=== PATIENT | female | born 1960 | race Caucasian/White ===

== ENCOUNTER 2019-05-27 21:55 | Inpatient (IN) | payer BC ==
[~2019-05-27] VITALS: Ht 162.6 cm; Wt 79.6 kg
[~2019-05-27 21:55] MED LIST: ACAM333T8 PO; ATEN-169 PO; CHOL10002 PO; FAMO20TA8 PO; FLUT16SP2 BOTHNARES; GABA-534 PO; HYDR-3973 PO; HYDR-4070 PO; NALT50TA PO; QUET25TA PO; SERT25TA PO
[2019-05-27] MEDS ORDERED: mag hydrox/Alum hydrox/simeth 30ml oral suspension PO ONE (22:20)
[2019-05-27] MEDS ORDERED: famotidine 20mg tablet PO ONE (22:20)
[2019-05-27] MEDS ORDERED: LIDOcaine Viscous 15ml cup MM ONE (22:20)
[2019-05-27 22:31] LABS: BASOPHILS % (AUTO) 0.2 % (0-1); EOSINOPHILS # (AUTO) 0.3 X10'3 (0-0.9); EOSINOPHILS % (AUTO) 2.6 % (0-6); HEMATOCRIT 37.9 % (35.0-45.0); HEMOGLOBIN 12.9 g/dl (12.0-16.0); LYMPHOCYTES # (AUTO) 1.1 X10'3 (1.1-4.8); MEAN CORPUSCULAR HEMOGLOBIN 32.9 PG (27.0-31.0); MEAN CORPUSCULAR HGB CONC 34.1 g/dL (33.0-36.5); MEAN CORPUSCULAR VOLUME 96.7 FL (78-98); MEAN PLATELET VOLUME 7.5 FL (7.4-10.4); MONOCYTES # (AUTO) 1.3 X10'3 (0-0.9); MONOCYTES % (AUTO) 12.4 % (2-12); NEUTROPHILS # (AUTO) 7.5 X10'3 (1.8-7.7); NEUTROPHILS % (AUTO) 73.8 % (42-75); PLATELET COUNT 264 X10'3 (140-440); RED BLOOD COUNT 3.91 X10'6 (4.20-5.60); RED CELL DISTRIBUTION WIDTH 16.2 % (11.5-14.5); WHITE BLOOD COUNT 10.2 X10'3 (4.5-11.0)
[2019-05-27 22:42] LABS: ALANINE AMINOTRANSFERASE 94 U/L (12-78); ALBUMIN 3.8 G/DL (3.4-5.0); ALBUMIN/GLOBULIN RATIO 1.3 (1.1-1.5); ALKALINE PHOSPHATASE 76 IU/L (46-116); ANION GAP 6 (8-16); ASPARTATE AMINO TRANSFERASE 58 U/L (10-37); BILIRUBIN,TOTAL 0.3 MG/DL (0.1-1.0); BLOOD UREA NITROGEN 20 MG/DL (7-18); BUN/CREATININE RATIO 17.2 (6.6-38.0); CALCIUM 8.4 MG/DL (8.5-10.1); CHLORIDE 103 MMOL/L (99-107); CREATININE 1.16 MG/DL (0.40-0.90); GLUCOSE 139 MG/DL (70-104); POTASSIUM 4.2 MMOL/L (3.5-5.1); SODIUM 138 MMOL/L (135-145); TOTAL CARBON DIOXIDE 29.4 MMOL/L (24-32); TOTAL PROTEIN 6.7 G/DL (6.4-8.2); eGFR 48 ML/MIN
[2019-05-27] MEDS ORDERED: ondansetron/PF 4mg/2ml inj IV ONE (22:50)
[2019-05-27] MEDS ORDERED: morphine 4 MG/ML inj SYRINge IV ONE (22:50)
[2019-05-27] MEDS ORDERED: morphine 4 MG/ML inj SYRINge IM ONE (22:55)
[2019-05-27] MEDS ORDERED: ondansetron 4mg rapidly disintigrating tab PO ONE (22:55)
[2019-05-27 23:12] LABS: URINE HCG NEGATIVE (NEG)
[2019-05-27 23:24] LABS: LIPASE 8003 U/L (73-393)
[2019-05-27 23:26] LABS: CLARITY,URINE SLIGHTLY CLOUDY (Clear); COLOR,URINE YELLOW (Yellow); GLUCOSE, URINE NEGATIVE (Neg); KETONES,URINE NEGATIVE (Neg); LEUKOCYTE ESTERASE ,URINE TRACE (Neg); NITRITES, URINE POSITIVE (Neg); OCCULT BLOOD,URINE NEGATIVE (Neg); PROTEIN,URINE NEGATIVE (Neg); UROBILINOGEN,URINE 0.2 E.U/dL (0.2-1.0)
[2019-05-27 23:27] LABS: UA COLLECTION TYPE CLN CATCH MIDSTREAM
[2019-05-27] MEDS ORDERED: normal saline 1000ML IV soln IVB ONE (23:30)
[2019-05-27 23:36] LABS: BACTERIA,URINE 4+ /HPF (Neg); MUCUS STRANDS NONE SEEN /LPF (Neg); RBC,URINE NONE SEEN /HPF (0-2); SQUAMOUS EPITHELIAL CELL,UR FEW /LPF (FEW)
[2019-05-27] MEDS ORDERED: METO100T7 PO (23:55)
[2019-05-27] MEDS ORDERED: LISI10TA4 PO (23:55)
[2019-05-27] MEDS ORDERED: FAMO20TA8 PO (23:55)
[2019-05-27] MEDS ORDERED: NICO-687 TOP (23:55)
[2019-05-27] MEDS ORDERED: TRAZ-251 PO (23:55)
[2019-05-27] MEDS ORDERED: METH500T6 PO (23:55)
[2019-05-27] MEDS ORDERED: HYDR-3686 PO (23:55)
[2019-05-27] MEDS ORDERED: ondansetron/PF 4mg/2ml inj IV PRN (23:55)
[2019-05-27] MEDS ORDERED: ESCI5TAB PO (23:55)
[2019-05-27] MEDS ORDERED: GABA-532 PO (23:55)
[2019-05-27] MEDS ORDERED: LIDO1ADH TOP (23:55)
[2019-05-27] MEDS ORDERED: potassium CL 10mEq/100ml bag 100 ML IV PRN ×2 (23:55)
[2019-05-27] MEDS ORDERED: morphine 2 MG/ML inj. syringe IV PRN (23:55)
[2019-05-27] MEDS ORDERED: morphine/NS 5 mg/ml CADD 50 ML IV SCH (23:57)
[2019-05-28] MEDS ORDERED: naloxone 0.4 mg/ml inj IV PRN
[2019-05-28] MEDS ORDERED: non-formulary drug (Fluticasone Propionate (Flonase) 2 SPRAYS) BOTHNARES PRN
[2019-05-28] MEDS ORDERED: traZODone 50mg tablet PO PRN
[2019-05-28] MEDS ORDERED: CADD PCA waste documentation MC PRN
[2019-05-28] MEDS ORDERED: fluticasone nasal spray 16GM bottle NS PRN (00:05)
[2019-05-28] MEDS ORDERED: morphine 4 MG/ML inj SYRINge IV ONE (00:40)
[2019-05-28] MEDS: normal saline 1000ml 1,000 ML IV SCH ×3 (01:07→20:48)
--- NOTE | 2019-05-28 02:09 | NUR ---
ATTEMPTED TO GIVE REPORT; RN AT LUNCH AND WILL CALL BACK
[2019-05-28 02:30] VITALS: BP 167/94
[2019-05-28] MEDS: morphine/NS 5 mg/ml CADD 50 ML IV SCH ×10 (05:00→23:00)
[2019-05-28 06:00] VITALS: BP 113/65
[2019-05-28 06:04] LABS: BASOPHILS % (AUTO) 0.3 % (0-1); EOSINOPHILS # (AUTO) 0.1 X10'3 (0-0.9); EOSINOPHILS % (AUTO) 2.2 % (0-6); HEMATOCRIT 34.6 % (35.0-45.0); HEMOGLOBIN 11.9 g/dl (12.0-16.0); LYMPHOCYTES # (AUTO) 1.1 X10'3 (1.1-4.8); LYMPHOCYTES % (AUTO) 17.4 % (21-51); MEAN CORPUSCULAR HEMOGLOBIN 33.3 PG (27.0-31.0); MEAN CORPUSCULAR HGB CONC 34.3 g/dL (33.0-36.5); MEAN CORPUSCULAR VOLUME 97.2 FL (78-98); MEAN PLATELET VOLUME 8.1 FL (7.4-10.4); MONOCYTES # (AUTO) 0.8 X10'3 (0-0.9); MONOCYTES % (AUTO) 13.2 % (2-12); NEUTROPHILS # (AUTO) 4.3 X10'3 (1.8-7.7); NEUTROPHILS % (AUTO) 66.9 % (42-75); PLATELET COUNT 230 X10'3 (140-440); RED BLOOD COUNT 3.56 X10'6 (4.20-5.60); RED CELL DISTRIBUTION WIDTH 16.2 % (11.5-14.5); WHITE BLOOD COUNT 6.4 X10'3 (4.5-11.0)
[2019-05-28 06:11] LABS: ALANINE AMINOTRANSFERASE 72 U/L (12-78); ALBUMIN 3.1 G/DL (3.4-5.0); ALBUMIN/GLOBULIN RATIO 1.2 (1.1-1.5); ALKALINE PHOSPHATASE 63 IU/L (46-116); ANION GAP 4 (8-16); ASPARTATE AMINO TRANSFERASE 43 U/L (10-37); BILIRUBIN,TOTAL 0.3 MG/DL (0.1-1.0); BLOOD UREA NITROGEN 16 MG/DL (7-18); CALCIUM 7.7 MG/DL (8.5-10.1); CHLORIDE 108 MMOL/L (99-107); CREATININE 1.07 MG/DL (0.40-0.90); GLUCOSE 107 MG/DL (70-104); POTASSIUM 4.2 MMOL/L (3.5-5.1); SODIUM 140 MMOL/L (135-145); TOTAL CARBON DIOXIDE 27.6 MMOL/L (24-32); TOTAL PROTEIN 5.6 G/DL (6.4-8.2); eGFR 53 ML/MIN
--- NOTE | 2019-05-28 06:15 | NUR ---
Patient in room ORTHO 4015. I have received report from Clara Cross and had the opportunity to ask questions and assume patient care.
[2019-05-28 06:52] LABS: LIPASE 3185 U/L (73-393)
[2019-05-28] MEDS: K and/or MAG REPLACEMENT MC SCH ×2 (08:00→20:00)
[2019-05-28] MEDS: nicotine 21mg patch - 24 hr TD SCH (08:01)
[2019-05-28] MEDS: metoprolol succinate 25mg (24-HOUR) SR. Tablet PO SCH (08:02)
[2019-05-28] MEDS: heparin, porcine 5000 units/ml vial SQ SCH ×2 (08:03→20:46)
[2019-05-28] MEDS: LIDOcaine 5% patch TP SCH (08:24)
[2019-05-28 10:00] VITALS: BP 152/87
[2019-05-28] MEDS ORDERED: pneumococcal 23-VAL P-sac vacc 25 mcg/0.5ml vial IMVAC ONE (10:00)
[2019-05-28] MEDS ORDERED: FLU VACC QS2019-20 36MOS UP/PF 60 MCG/0.5 ML SYRINGE IMVAC ONE (10:00)
[2019-05-28] MEDS: lisinopril 10 MG tablet PO SCH (11:32)
[2019-05-28] MEDS ORDERED: gabapentin 400mg capsule PO SCH (13:00)
[2019-05-28] MEDS: gabapentin 300mg capsule PO SCH ×2 (14:36→20:46)
--- NOTE | 2019-05-28 17:30 | NUR ---
Called to pts room by LOCO Ko, who reported pts IV is beeping and the door of the IV pump was open and the tubing was out of the pump. Asked pt why the IV pump door was open, and she responded "I have no idea why." Checking the CADD use setting check showed that the reading at 1500 was exactly the same as the reading at this time (1730). Pt reported earlier today "I can't see the Morphine going through the tubing." Pt made the same statement x3 throughout the day. I asked Cate, Relief metal reclamation kettle tender and Susan RN, to look at the tubing to assure the patient it was correctly set, and the readings q 2hours showed the patient was receiving the MS. I informed the patient repeatedly that she would be unable to see the Morphine going through the IV tubing as it is such a small amount. Pts pain rating never went up higher than a 3 or 4 throughout my entire shift. Will continue to monitor closely and pass on to the oncoming shift.
[2019-05-28 18:00] VITALS: BP 100/68
--- NOTE | 2019-05-28 18:22 | NUR ---
Problems reprioritized. Patient report given, questions answered & plan of care reviewed with OMAIRA Beckham.
[2019-05-28 22:00] VITALS: BP 152/69
[2019-05-29] MEDS: morphine/NS 5 mg/ml CADD 50 ML IV SCH ×7 (01:00→13:00)
--- NOTE | 2019-05-29 05:00 | NUR ---
paged dr. 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
--- NOTE | 2019-05-29 05:35 | NUR ---
dr. richard called adviced to leave morphine specialty finishing utility person dose of 0.2 mg and address with md this morning.
[2019-05-29 05:45] LABS: ALANINE AMINOTRANSFERASE 65 U/L (12-78); ALBUMIN 2.8 G/DL (3.4-5.0); ALBUMIN/GLOBULIN RATIO 1.1 (1.1-1.5); ALKALINE PHOSPHATASE 64 IU/L (46-116); ANION GAP 5 (8-16); ASPARTATE AMINO TRANSFERASE 39 U/L (10-37); BILIRUBIN,TOTAL 0.4 MG/DL (0.1-1.0); BLOOD UREA NITROGEN 13 MG/DL (7-18); BUN/CREATININE RATIO 13.4 (6.6-38.0); CHLORIDE 110 MMOL/L (99-107); CREATININE 0.97 MG/DL (0.40-0.90); GLUCOSE 75 MG/DL (70-104); LIPASE 983 U/L (73-393); POTASSIUM 4.5 MMOL/L (3.5-5.1); SODIUM 142 MMOL/L (135-145); TOTAL CARBON DIOXIDE 26.7 MMOL/L (24-32); TOTAL PROTEIN 5.3 G/DL (6.4-8.2); eGFR 59 ML/MIN
[2019-05-29 06:00] VITALS: BP 165/86
[2019-05-29 06:39] LABS: BASOPHILS % (AUTO) 0.5 % (0-1); EOSINOPHILS # (AUTO) 0.2 X10'3 (0-0.9); EOSINOPHILS % (AUTO) 3.6 % (0-6); HEMATOCRIT 34.7 % (35.0-45.0); HEMOGLOBIN 11.7 g/dl (12.0-16.0); LYMPHOCYTES # (AUTO) 1.8 X10'3 (1.1-4.8); LYMPHOCYTES % (AUTO) 27.7 % (21-51); MEAN CORPUSCULAR HEMOGLOBIN 32.8 PG (27.0-31.0); MEAN CORPUSCULAR HGB CONC 33.7 g/dL (33.0-36.5); MEAN CORPUSCULAR VOLUME 97.4 FL (78-98); MONOCYTES # (AUTO) 1.2 X10'3 (0-0.9); MONOCYTES % (AUTO) 18.8 % (2-12); NEUTROPHILS # (AUTO) 3.3 X10'3 (1.8-7.7); NEUTROPHILS % (AUTO) 49.4 % (42-75); PLATELET COUNT 271 X10'3 (140-440); RED BLOOD COUNT 3.56 X10'6 (4.20-5.60); RED CELL DISTRIBUTION WIDTH 15.8 % (11.5-14.5); WHITE BLOOD COUNT 6.7 X10'3 (4.5-11.0)
[2019-05-29] MEDS ORDERED: fluticasone nasal spray 16GM bottle NS SCH (08:00)
[2019-05-29] MEDS: heparin, porcine 5000 units/ml vial SQ SCH (08:00)
[2019-05-29] MEDS: K and/or MAG REPLACEMENT MC SCH (08:00)
[2019-05-29] MEDS: normal saline 1000ml 1,000 ML IV SCH (08:22)
[2019-05-29] MEDS: metoprolol succinate 25mg (24-HOUR) SR. Tablet PO SCH (08:23)
[2019-05-29] MEDS: gabapentin 300mg capsule PO SCH ×2 (08:24→13:15)
[2019-05-29] MEDS: lisinopril 10 MG tablet PO SCH (08:24)
[2019-05-29] MEDS: LIDOcaine 5% patch TP SCH (08:25)
[2019-05-29] MEDS: nicotine 21mg patch - 24 hr TD SCH (08:25)
[2019-05-29 09:39] LABS: TOTAL CELLS COUNTED 100
[2019-05-29 09:40] LABS: PLATELET ESTIMATE NORMAL
[2019-05-29] MEDS ORDERED: LIPA1CAP18 PO (09:52)
[2019-05-29] MEDS ORDERED: PANT40TA4 PO (09:52)
[2019-05-29] MEDS ORDERED: CEFD300C3 PO (09:57)
[2019-05-29 10:00] VITALS: BP 164/82
--- NOTE | 2019-05-29 13:30 | NUR ---
Received discharge orders from Dr. Ornelas. Discontinued IV in Left AC w/CADD pump with no redness/swelling at IV insertion site. Applied a bandaid to site, and performed waste of CADD pump Morphine with Tripp Esposito RN and documented on MAY. Prescriptions called to [facility] on [address] per pts request. Pt escorted to private vehicle via w/c with driving her to home.
== END 2019-05-29 13:40 | disposition home or self-care (01) | DRG 439 ==
LOC: ER 21:57 → ED HOLD 23:55 → ORTHO 4S 05-28 02:31
PROVIDERS: ADMIT Internal Medicine; ATTEND Internal Medicine
DX: K85.20 Alcohol induced acute pancreatitis without necrosis or infection (principal); N39.0 Urinary tract infection, site not specified; B96.20 Unspecified Escherichia coli [E. coli] as the cause of diseases classified elsewhere; F17.210 Nicotine dependence, cigarettes, uncomplicated; K80.20 Calculus of gallbladder without cholecystitis without obstruction; Z83.3 Family history of diabetes mellitus
CPT/HCPCS: 36415; 74176; 80053; 81001; 81025; 83690; 85025; 87077; 87081; 87088; 87186; 96372; 99285; G0378; J1644; J2270; J7030; Q2037

== ENCOUNTER 2022-03-20 12:25 | Emergency (ER) | payer BC ==
[~2022-03-20] VITALS: Ht 162.6 cm; Wt 72.0 kg
[~2022-03-20 12:25] MED LIST changes: -ACAM333T8 PO; -ATEN-169 PO; +ESCI5TAB PO; -FAMO20TA8 PO; +GABA-532 PO; -GABA-534 PO; +HYDR-3686 PO; -HYDR-3973 PO; -HYDR-4070 PO; +LIDO1ADH TOP; +LIPA1CAP18 PO; +LISI10TA27 PO; +METH-797 PO; +METO100T7 PO; -NALT50TA PO; +NICO-687 TOP; +PANT40TA54 PO; -QUET25TA PO; -SERT25TA PO; +TRAZ-251 PO
[2022-03-20] MEDS ORDERED: ondansetron/PF 4mg/2ml inj IV ONE (13:15)
[2022-03-20] MEDS ORDERED: normal saline 1000ml 1,000 ML IV ONE ×2 (13:15→14:00)
[2022-03-20 13:16] LABS: CLARITY,URINE CLOUDY (Clear); COLOR,URINE YELLOW (Yellow); GLUCOSE, URINE NEGATIVE (Neg); KETONES,URINE TRACE mg/dl (Neg); LEUKOCYTE ESTERASE ,URINE MODERATE (Neg); NITRITES, URINE POSITIVE (Neg); OCCULT BLOOD,URINE MODERATE (Neg); PROTEIN,URINE 100 mg/dl (Neg); UROBILINOGEN,URINE 0.2 E.U/dL (0.2-1.0)
[2022-03-20 13:22] LABS: UA COLLECTION TYPE NON-SPECIFIED; URINE AMPHETAMINE SCREEN NEGATIVE (Neg); URINE BARBITUATE SCREEN NEGATIVE (Neg); URINE BENZODIAZEPINES SCREEN NEGATIVE (Neg); URINE CANNABINOID SCREEN NEGATIVE (Neg); URINE COCAINE SCREEN NEGATIVE (Neg); URINE METHADONE SCREEN NEGATIVE (Neg); URINE OPIATE SCREEN NEGATIVE (Neg); URINE PHENCYCLIDINE SCREEN NEGATIVE (Neg)
[2022-03-20 13:24] LABS: BACTERIA,URINE 4+ /HPF (Neg); COARSE GRANULAR CAST 0-3 /LPF (NEGATIVE); MUCUS STRANDS NONE SEEN /LPF (Neg); SQUAMOUS EPITHELIAL CELL,UR MODERATE /LPF (FEW)
[2022-03-20 13:27] LABS: BASOPHILS % (AUTO) 0.3 % (0-1); EOSINOPHILS % (AUTO) 0.2 % (0-6); HEMATOCRIT 43.4 % (35.0-45.0); HEMOGLOBIN 14.5 g/dl (12.0-16.0); LYMPHOCYTES # (AUTO) 1.5 X10'3 (1.1-4.8); LYMPHOCYTES % (AUTO) 18.9 % (21-51); MEAN CORPUSCULAR HEMOGLOBIN 31.9 PG (27.0-31.0); MEAN CORPUSCULAR HGB CONC 33.4 g/dL (33.0-36.5); MEAN CORPUSCULAR VOLUME 95.3 FL (78-98); MEAN PLATELET VOLUME 7.1 FL (7.4-10.4); MONOCYTES # (AUTO) 0.5 X10'3 (0-0.9); MONOCYTES % (AUTO) 6.6 % (2-12); NEUTROPHILS # (AUTO) 5.9 X10'3 (1.8-7.7); PLATELET COUNT 320 X10'3 (140-440); RED BLOOD COUNT 4.55 X10'6 (4.20-5.60); RED CELL DISTRIBUTION WIDTH 14.4 % (11.5-14.5)
[2022-03-20 13:43] LABS: ALANINE AMINOTRANSFERASE 126 U/L (12-78); ALBUMIN 4.3 G/DL (3.4-5.0); ALBUMIN/GLOBULIN RATIO 1.3 (1.1-1.5); ALKALINE PHOSPHATASE 106 IU/L (46-116); ANION GAP 14 (8-16); ASPARTATE AMINO TRANSFERASE 154 U/L (10-37); BILIRUBIN,TOTAL 1.1 MG/DL (0.1-1.0); BLOOD UREA NITROGEN 21 MG/DL (7-18); BUN/CREATININE RATIO 20.2 (6.6-38.0); CALCIUM 8.6 MG/DL (8.5-10.1); CHLORIDE 96 MMOL/L (99-107); CREATININE 1.04 MG/DL (0.40-0.90); GLUCOSE 118 MG/DL (70-104); PHOSPHORUS 3.6 MG/DL (2.3-4.5); POTASSIUM 3.6 MMOL/L (3.5-5.1); SODIUM 139 MMOL/L (135-145); TOTAL CARBON DIOXIDE 29.4 MMOL/L (24-32); TOTAL PROTEIN 7.6 G/DL (6.4-8.2); eGFR 54 ML/MIN
[2022-03-20 13:50] LABS: ETHANOL 0.372 GM/DL (0.0-0.010)
[2022-03-20] MEDS ORDERED: thiamine 100mg/ml 2ml inj. IV STA (13:59)
[2022-03-20] MEDS ORDERED: folic acid 1mg/0.2ml inj IV STA (13:59)
[2022-03-20] MEDS ORDERED: LORazepam 1 MG tablet PO ONE (14:30)
[2022-03-20] MEDS ORDERED: cephalexin 250mg capsule PO ONE (14:30)
[2022-03-20] MEDS ORDERED: CEPH-585 PO (14:31)
[2022-03-20] MEDS ORDERED: ATI1T PO (14:31)
[2022-03-20] MEDS ORDERED: ONDA4TAB12 PO (14:33)
[2022-03-20] MEDS ORDERED: THIA50TA10 PO (14:33)
[2022-03-20] MEDS ORDERED: MULT-1085 PO (14:33)
[2022-03-20] MEDS ORDERED: multivitamins, therapeutics tablet PO SCH (14:35)
[2022-03-20 15:34] VITALS: BP 188/101
== END 2022-03-20 15:37 | disposition home or self-care (01) ==
LOC: ER 12:26
DX: F10.129 Alcohol abuse with intoxication, unspecified (principal); Y90.9 Presence of alcohol in blood, level not specified; Z98.890 Other specified postprocedural states; Z79.899 Other long term (current) drug therapy; Z79.1 Long term (current) use of non-steroidal anti-inflammatories (NSAID); Z79.2 Long term (current) use of antibiotics
CPT/HCPCS: 36415; 80053; 80305; 80320; 81001; 82948; 83735; 84100; 84484; 85025; 96361; 96374; 96375; 99285; J2405; J3411; J3490; J7030

== ENCOUNTER 2022-03-23 01:57 | Emergency (ER) | payer BC ==
[~2022-03-23] VITALS: Ht 165.1 cm; Wt 90.0 kg
[~2022-03-23 01:57] MED LIST changes: +ATI1T PO; +CEPH-585 PO; +MULT-1085 PO; +ONDA4TAB12 PO; +THIA50TA10 PO
[2022-03-23 02:01] VITALS: BP 153/95
== END 2022-03-23 04:11 | disposition left against medical advice (07) ==
LOC: ER 01:58
DX: F10.239 Alcohol dependence with withdrawal, unspecified (principal); Z53.21 Procedure and treatment not carried out due to patient leaving prior to being seen by health care provider

== ENCOUNTER 2022-09-29 06:56 | Inpatient (IN) | payer BC ==
[~2022-09-29] VITALS: Ht 162.6 cm; Wt 76.4 kg
[~2022-09-29 06:56] MED LIST changes: -CEPH-585 PO
[2022-09-29] MEDS ORDERED: thiamine 100mg/ml 2ml inj. IV ONE (07:35)
[2022-09-29] MEDS ORDERED: normal saline 1000ML IV soln IVB ONE (07:35)
[2022-09-29 07:50] LABS: BASOPHILS # (AUTO) 0.1 X10'3 (0-0.2); BASOPHILS % (AUTO) 0.8 % (0-1); EOSINOPHILS # (AUTO) 0.1 X10'3 (0-0.9); HEMATOCRIT 41.7 % (35.0-45.0); HEMOGLOBIN 13.8 g/dl (12.0-16.0); LYMPHOCYTES # (AUTO) 1.9 X10'3 (1.1-4.8); LYMPHOCYTES % (AUTO) 27.5 % (21-51); MEAN CORPUSCULAR HEMOGLOBIN 31.2 PG (27.0-31.0); MEAN CORPUSCULAR VOLUME 94.6 FL (78-98); MEAN PLATELET VOLUME 6.3 FL (7.4-10.4); MONOCYTES # (AUTO) 0.6 X10'3 (0-0.9); MONOCYTES % (AUTO) 8.5 % (2-12); NEUTROPHILS # (AUTO) 4.3 X10'3 (1.8-7.7); NEUTROPHILS % (AUTO) 62.2 % (42-75); PLATELET COUNT 380 X10'3 (140-440); RED BLOOD COUNT 4.41 X10'6 (4.20-5.60); RED CELL DISTRIBUTION WIDTH 15.3 % (11.5-14.5); WHITE BLOOD COUNT 6.9 X10'3 (4.5-11.0)
[2022-09-29 07:53] LABS: CLARITY,URINE CLOUDY (Clear); COLOR,URINE STRAW (Yellow); GLUCOSE, URINE NEGATIVE (Neg); KETONES,URINE NEGATIVE (Neg); LEUKOCYTE ESTERASE ,URINE SMALL (Neg); NITRITES, URINE NEGATIVE (Neg); OCCULT BLOOD,URINE NEGATIVE (Neg); PROTEIN,URINE NEGATIVE (Neg); UROBILINOGEN,URINE 0.2 E.U/dL (0.2-1.0)
[2022-09-29] MEDS ORDERED: HYDROcodone/acetaminophen 10/325mg tab PO ONE (07:55)
[2022-09-29] MEDS ORDERED: ondansetron 4mg rapidly disintigrating tab PO ONE (07:55)
[2022-09-29 07:57] LABS: UA COLLECTION TYPE CLN CATCH MIDSTREAM
[2022-09-29 08:03] LABS: MUCUS STRANDS NONE SEEN /LPF (Neg); SQUAMOUS EPITHELIAL CELL,UR MODERATE /LPF (FEW)
[2022-09-29 08:04] LABS: BACTERIA,URINE 4+ /HPF (Neg); TRANSITIONAL EPI CELLS,URINE FEW /HPF
[2022-09-29 08:06] LABS: RBC,URINE 0-2 /HPF (0-2); WBC,URINE 0-4 /HPF (0-4)
[2022-09-29 08:07] LABS: ALANINE AMINOTRANSFERASE 31 U/L (12-78); ALBUMIN 3.4 G/DL (3.4-5.0); ALBUMIN/GLOBULIN RATIO 1.1 (1.1-1.5); ALKALINE PHOSPHATASE 63 IU/L (46-116); ANION GAP 8 (8-16); ASPARTATE AMINO TRANSFERASE 28 U/L (10-37); BILIRUBIN,TOTAL 0.2 MG/DL (0.1-1.0); BLOOD UREA NITROGEN 16 MG/DL (7-18); CALCIUM 8.8 MG/DL (8.5-10.1); CHLORIDE 102 MMOL/L (99-107); CREATININE 3.18 MG/DL (0.40-0.90); GLUCOSE 134 MG/DL (70-104); POTASSIUM 3.6 MMOL/L (3.5-5.1); SODIUM 138 MMOL/L (135-145); TOTAL CARBON DIOXIDE 27.9 MMOL/L (24-32); TOTAL PROTEIN 6.5 G/DL (6.4-8.2); eGFR 15 ML/MIN
[2022-09-29 08:11] LABS: ETHANOL < 0.010 GM/DL (0.0-0.010); LIPASE 200 U/L (73-393)
--- NOTE | 2022-09-29 09:00 | NUR ---
Called Poison Control per MD. Pts labs indicated kindey failure per MD. Spoke to June. Per Poison Control in 4 hr draw another chemisty pannel, ABG 8 hrs after the first one is drawn, serum osmolality. MD/Charge nurse Familia have been notified.
--- NOTE | 2022-09-29 09:19 | NUR ---
Bhavani at Poison Control states is appears the Pt has ingested rubbing alcohol/acetone.
[2022-09-29 09:36] LABS: ABG BASE EXCESS 1.6 mmol/L (-2.0-2.0); ABG HCO3 21.6 mmol/L (22.0-26.0); ABG PCO2 (T) 22.8 mmHg (32.0-45.0); ABG PO2 (T) 105.9 mmHg (75.0-100.0); ALLEN'S TEST POSITIVE; FCOHb 0.4 % (0.0-3.9); FMetHb 0.1 % (0.0-1.5); FO2Hb 97.5 % (94-97); TOTAL HEMOGLOBIN 13.4 G/dl (12.0-16.0)
[2022-09-29] MEDS ORDERED: acetaminophen 325mg tablet PO PRN ×2 (09:55)
[2022-09-29] MEDS ORDERED: potassium Cl 40MEQ/1/2NS 520ml 520 ML IV PRN (09:55)
[2022-09-29] MEDS ORDERED: haloperidol lactate 5mg/ml inj IM PRN (09:55)
[2022-09-29] MEDS ORDERED: magnesium 4gm in 100ml NS 100 ML IV PRN (09:55)
[2022-09-29] MEDS ORDERED: magnesium 2GM in 50ml NS 50 ML IV PRN (09:55)
[2022-09-29] MEDS ORDERED: magnesium Cl slow-release 64mg tablet PO PRN (09:55)
[2022-09-29] MEDS ORDERED: ondansetron/PF 4mg/2ml inj IV PRN (09:55)
[2022-09-29] MEDS ORDERED: potassium Cl 20 mEq SR tablet PO PRN ×2 (09:55)
[2022-09-29] MEDS ORDERED: LORazepam 2 mg/ml vial IV ONE (10:05)
[2022-09-29 10:32] LABS: OSMOLALITY 338 MOSM/K (280-300)
[2022-09-29] MEDS: pantoprazole 40mg Tablet.DR PO SCH (10:48)
[2022-09-29] MEDS: nicotine 14mg patch - 24hr TD SCH (10:49)
[2022-09-29] MEDS: normal saline 1000ml 1,000 ML IV SCH ×2 (10:54→20:44)
[2022-09-29] MEDS: folic acid 1mg/0.2ml inj IV SCH (10:56)
[2022-09-29 12:00] VITALS: BP 146/81; PULSE 82; RESP 21; TEMP 97.8; O2SAT 92
[2022-09-29 12:21] VITALS: RESP 17; O2SAT 93
--- NOTE | 2022-09-29 12:34 | NUR ---
Patient in room PCU 3012. I have received report from Leena CASTANO and had the opportunity to ask questions and assume patient care. Pt brought from ER, pt in bed and transition of care taken.
--- NOTE | 2022-09-29 12:47 | NUR ---
As per nursing note from call with poison control all labs have been entered and will be drawn at requested time.
--- NOTE | 2022-09-29 13:24 | NUR ---
Received order for consult. Met with patient in regards to alcohol use and to see if patient was interested in resources for treatment options. Patient is interested in outpatient resources. I discussed with patient about the importance of getting a sponsor. I talked to her about Naltrexone to help with cravings. Patient was on Naltrexone in the past and it worked. Her primary doctor will give her the medicine. I gave her a list of outpatient resources and my card to call me if needed.
[2022-09-29] MEDS: thiamine 100mg/ml 2ml inj. IV SCH ×2 (14:13→21:42)
[2022-09-29 15:00] VITALS: BP 128/76; PULSE 98; RESP 16; TEMP 97.3; O2SAT 92
[2022-09-29 15:42] LABS: ALANINE AMINOTRANSFERASE 29 U/L (12-78); ALBUMIN/GLOBULIN RATIO 1.1 (1.1-1.5); ALKALINE PHOSPHATASE 54 IU/L (46-116); ANION GAP 10 (8-16); ASPARTATE AMINO TRANSFERASE 22 U/L (10-37); BILIRUBIN,TOTAL 0.2 MG/DL (0.1-1.0); BLOOD UREA NITROGEN 12 MG/DL (7-18); BUN/CREATININE RATIO 4.3 (10.0-20.0); CALCIUM 8.3 MG/DL (8.5-10.1); CHLORIDE 107 MMOL/L (99-107); CREATININE 2.81 MG/DL (0.40-0.90); GLUCOSE 120 MG/DL (70-104); POTASSIUM 3.6 MMOL/L (3.5-5.1); SODIUM 142 MMOL/L (135-145); TOTAL CARBON DIOXIDE 25.3 MMOL/L (24-32); TOTAL PROTEIN 5.8 G/DL (6.4-8.2); eGFR 17 ML/MIN
[2022-09-29] MEDS ORDERED: HYDR-3686 PO (15:47)
[2022-09-29 17:21] LABS: ABG BASE EXCESS -3.2 mmol/L (-2.0-2.0); ABG HCO3 20.3 mmol/L (22.0-26.0); ABG OXYGEN SATURATION 95.4 % (94-97); ABG PCO2 (T) 31.8 mmHg (32.0-45.0); ABG PO2 (T) 82.4 mmHg (75.0-100.0); ALLEN'S TEST POSITIVE; FCOHb 0.3 % (0.0-3.9); FLOW 0 L/min; FMetHb 0.2 % (0.0-1.5); FO2Hb 94.9 % (94-97); TOTAL HEMOGLOBIN 13.4 G/dl (12.0-16.0)
[2022-09-29 18:00] VITALS: BP 143/87; PULSE 90; RESP 18; TEMP 97.2; O2SAT 98
--- NOTE | 2022-09-29 18:38 | NUR ---
Problems reprioritized. Patient report given, questions answered & plan of care reviewed with Bakari LONG.
[2022-09-29] MEDS: heparin, porcine 5000 units/ml vial SQ SCH (19:15)
[2022-09-29] MEDS: LORazepam 1 MG tablet PO PRN (19:15)
[2022-09-29 20:00] VITALS: RESP 18; O2SAT 98
[2022-09-29 22:00] VITALS: BP 135/64; PULSE 81; RESP 13; TEMP 97.7; O2SAT 98
--- NOTE | 2022-09-29 22:00 | NUR ---
AGREE WITH ASSESSMENT DONE BY INOCENTE LONG.
[2022-09-30] VITALS (7 sets, daily range): BP systolic 123–174; BP diastolic 73–95; PULSE 72–102; RESP 14–22; TEMP 97.3–98.5; O2SAT 93–99
[2022-09-30] MEDS: normal saline 1000ml 1,000 ML IV SCH ×3 (01:55→13:49)
[2022-09-30 07:31] LABS: BASOPHILS % (AUTO) 0.4 % (0-1); EOSINOPHILS % (AUTO) 0.6 % (0-6); HEMATOCRIT 39.4 % (35.0-45.0); HEMOGLOBIN 12.9 g/dl (12.0-16.0); LYMPHOCYTES # (AUTO) 1.1 X10'3 (1.1-4.8); LYMPHOCYTES % (AUTO) 16.9 % (21-51); MEAN CORPUSCULAR HEMOGLOBIN 31.3 PG (27.0-31.0); MEAN CORPUSCULAR HGB CONC 32.6 g/dL (33.0-36.5); MEAN PLATELET VOLUME 6.6 FL (7.4-10.4); MONOCYTES # (AUTO) 0.5 X10'3 (0-0.9); NEUTROPHILS # (AUTO) 4.8 X10'3 (1.8-7.7); NEUTROPHILS % (AUTO) 74.1 % (42-75); PLATELET COUNT 353 X10'3 (140-440); RED BLOOD COUNT 4.11 X10'6 (4.20-5.60); RED CELL DISTRIBUTION WIDTH 15.2 % (11.5-14.5); WHITE BLOOD COUNT 6.5 X10'3 (4.5-11.0)
[2022-09-30] MEDS: folic acid 1mg/0.2ml inj IV SCH (07:50)
[2022-09-30] MEDS: nicotine 14mg patch - 24hr TD SCH (07:51)
[2022-09-30] MEDS: pantoprazole 40mg Tablet.DR PO SCH (07:51)
[2022-09-30] MEDS: thiamine 100mg/ml 2ml inj. IV SCH ×3 (07:51→21:09)
[2022-09-30] MEDS: heparin, porcine 5000 units/ml vial SQ SCH ×2 (07:51→21:09)
[2022-09-30] MEDS: LORazepam 2 mg/ml vial IV PRN ×3 (08:02→16:08)
[2022-09-30 08:04] LABS: ALANINE AMINOTRANSFERASE 32 U/L (12-78); ALBUMIN 3.4 G/DL (3.4-5.0); ALBUMIN/GLOBULIN RATIO 1.2 (1.1-1.5); ALKALINE PHOSPHATASE 61 IU/L (46-116); ANION GAP 12 (8-16); ASPARTATE AMINO TRANSFERASE 26 U/L (10-37); BILIRUBIN,TOTAL 0.3 MG/DL (0.1-1.0); BLOOD UREA NITROGEN 10 MG/DL (7-18); BUN/CREATININE RATIO 4.3 (10.0-20.0); CALCIUM 8.5 MG/DL (8.5-10.1); CHLORIDE 104 MMOL/L (99-107); CREATININE 2.35 MG/DL (0.40-0.90); GLUCOSE 106 MG/DL (70-104); LIPASE 122 U/L (73-393); POTASSIUM 3.6 MMOL/L (3.5-5.1); SODIUM 139 MMOL/L (135-145); TOTAL CARBON DIOXIDE 23.3 MMOL/L (24-32); TOTAL PROTEIN 6.3 G/DL (6.4-8.2); eGFR 21 ML/MIN
--- NOTE | 2022-09-30 09:43 | NUR ---
Spoke to Kathryn from Poison control she will call back with recommendations
[2022-09-30 10:09] LABS: ALANINE AMINOTRANSFERASE 32 U/L (12-78); ALBUMIN 3.2 G/DL (3.4-5.0); ALBUMIN/GLOBULIN RATIO 1.1 (1.1-1.5); ALKALINE PHOSPHATASE 53 IU/L (46-116); ANION GAP 12 (8-16); ASPARTATE AMINO TRANSFERASE 21 U/L (10-37); BILIRUBIN,TOTAL 0.3 MG/DL (0.1-1.0); BLOOD UREA NITROGEN 9 MG/DL (7-18); BUN/CREATININE RATIO 4.1 (10.0-20.0); CALCIUM 8.7 MG/DL (8.5-10.1); CHLORIDE 106 MMOL/L (99-107); CREATININE 2.21 MG/DL (0.40-0.90); GLUCOSE 104 MG/DL (70-104); POTASSIUM 3.7 MMOL/L (3.5-5.1); SODIUM 140 MMOL/L (135-145); TOTAL CARBON DIOXIDE 22.5 MMOL/L (24-32); eGFR 23 ML/MIN
[2022-09-30] MEDS ORDERED: ciprofloxacin 250mg tablet PO ONE (10:20)
[2022-09-30 15:35] LABS: ALANINE AMINOTRANSFERASE 34 U/L (12-78); ALBUMIN/GLOBULIN RATIO 1.1 (1.1-1.5); ALKALINE PHOSPHATASE 55 IU/L (46-116); ANION GAP 10 (8-16); ASPARTATE AMINO TRANSFERASE 30 U/L (10-37); BILIRUBIN,TOTAL 0.3 MG/DL (0.1-1.0); BLOOD UREA NITROGEN 9 MG/DL (7-18); BUN/CREATININE RATIO 4.4 (10.0-20.0); CALCIUM 8.6 MG/DL (8.5-10.1); CHLORIDE 106 MMOL/L (99-107); CREATININE 2.04 MG/DL (0.40-0.90); GLUCOSE 119 MG/DL (70-104); POTASSIUM 3.7 MMOL/L (3.5-5.1); SODIUM 141 MMOL/L (135-145); TOTAL CARBON DIOXIDE 24.9 MMOL/L (24-32); TOTAL PROTEIN 5.8 G/DL (6.4-8.2); eGFR 25 ML/MIN
--- NOTE | 2022-09-30 17:26 | NUR ---
Spoke to Dr Shlomo Almanzar regarding patient having elevated BP's today and noticed patient take BP medications at home. Dr will address patients home medications.
--- NOTE | 2022-09-30 18:24 | NUR ---
Problems reprioritized. Patient report given, questions answered & plan of care reviewed with Mark CASTANO patient resting with eyes closed bed alarm in IV infusing per orders.
--- NOTE | 2022-09-30 18:25 | NUR ---
Patient in room PCU 3028. I have received report from OMAIRA JAMES and had the opportunity to ask questions and assume patient care.
[2022-09-30] MEDS ORDERED: traZODone 50mg tablet PO PRN (21:00)
[2022-09-30] MEDS: sennosides/docusate sodium tablet PO SCH ×2 (21:10→21:21)
[2022-09-30 22:04] LABS: ALANINE AMINOTRANSFERASE 37 U/L (12-78); ALBUMIN 3.4 G/DL (3.4-5.0); ALBUMIN/GLOBULIN RATIO 1.1 (1.1-1.5); ALKALINE PHOSPHATASE 62 IU/L (46-116); ANION GAP 13 (8-16); ASPARTATE AMINO TRANSFERASE 29 U/L (10-37); BILIRUBIN,TOTAL 0.3 MG/DL (0.1-1.0); BLOOD UREA NITROGEN 9 MG/DL (7-18); BUN/CREATININE RATIO 4.9 (10.0-20.0); CALCIUM 9.1 MG/DL (8.5-10.1); CHLORIDE 104 MMOL/L (99-107); CREATININE 1.84 MG/DL (0.40-0.90); GLUCOSE 142 MG/DL (70-104); POTASSIUM 3.6 MMOL/L (3.5-5.1); SODIUM 140 MMOL/L (135-145); TOTAL PROTEIN 6.5 G/DL (6.4-8.2); eGFR 28 ML/MIN
[2022-10-01] VITALS (7 sets, daily range): BP systolic 134–168; BP diastolic 69–98; PULSE 64–101; RESP 16–21; TEMP 97.1–98.5; O2SAT 92–99
[2022-10-01] MEDS: normal saline 1000ml 1,000 ML IV SCH ×3 (01:37→19:34)
--- NOTE | 2022-10-01 06:07 | NUR ---
Problems reprioritized. Patient report given, questions answered & plan of care reviewed with OMAIRA Valero.
--- NOTE | 2022-10-01 06:30 | NUR ---
Patient in room PCU 3028. I have received report from Yahaira CASTANO and had the opportunity to ask questions and assume patient care.Pt awake and alert. Requesting blanket. warm blanket given. Call light in reach. Addendum: 10/01/22 at 0646 by Tricia Navarro RN Amended: Links added.
[2022-10-01 07:27] LABS: BASOPHILS % (AUTO) 0.5 % (0-1); EOSINOPHILS # (AUTO) 0.1 X10'3 (0-0.9); EOSINOPHILS % (AUTO) 1.6 % (0-6); HEMATOCRIT 38.8 % (35.0-45.0); HEMOGLOBIN 13.2 g/dl (12.0-16.0); LYMPHOCYTES # (AUTO) 1.1 X10'3 (1.1-4.8); LYMPHOCYTES % (AUTO) 17.4 % (21-51); MEAN CORPUSCULAR HEMOGLOBIN 32.2 PG (27.0-31.0); MEAN CORPUSCULAR VOLUME 94.6 FL (78-98); MONOCYTES # (AUTO) 0.7 X10'3 (0-0.9); MONOCYTES % (AUTO) 10.5 % (2-12); NEUTROPHILS # (AUTO) 4.6 X10'3 (1.8-7.7); PLATELET COUNT 359 X10'3 (140-440); RED BLOOD COUNT 4.11 X10'6 (4.20-5.60); WHITE BLOOD COUNT 6.6 X10'3 (4.5-11.0)
[2022-10-01] MEDS: ESCITALOPRAM OXALATE 5 MG TABLET PO SCH (07:49)
[2022-10-01] MEDS: metoprolol succinate 25mg (24-HOUR) SR. Tablet PO SCH (07:49)
[2022-10-01] MEDS: pantoprazole 40mg Tablet.DR PO SCH (07:50)
[2022-10-01] MEDS: lisinopril 10 MG tablet PO SCH (07:51)
[2022-10-01] MEDS: heparin, porcine 5000 units/ml vial SQ SCH ×2 (07:51→20:16)
[2022-10-01] MEDS: thiamine 100mg/ml 2ml inj. IV SCH ×3 (07:52→20:15)
[2022-10-01] MEDS: nicotine 14mg patch - 24hr TD SCH (07:52)
[2022-10-01] MEDS: folic acid 1mg/0.2ml inj IV SCH (07:53)
[2022-10-01 07:55] LABS: ALANINE AMINOTRANSFERASE 36 U/L (12-78); ALBUMIN 3.3 G/DL (3.4-5.0); ALBUMIN/GLOBULIN RATIO 1.1 (1.1-1.5); ALKALINE PHOSPHATASE 57 IU/L (46-116); ANION GAP 15 (8-16); ASPARTATE AMINO TRANSFERASE 25 U/L (10-37); BILIRUBIN,TOTAL 0.3 MG/DL (0.1-1.0); BLOOD UREA NITROGEN 8 MG/DL (7-18); BUN/CREATININE RATIO 4.8 (10.0-20.0); CHLORIDE 104 MMOL/L (99-107); CREATININE 1.67 MG/DL (0.40-0.90); GLUCOSE 113 MG/DL (70-104); LIPASE 86 U/L (73-393); POTASSIUM 3.4 MMOL/L (3.5-5.1); SODIUM 142 MMOL/L (135-145); TOTAL CARBON DIOXIDE 23.5 MMOL/L (24-32); TOTAL PROTEIN 6.3 G/DL (6.4-8.2); eGFR 31 ML/MIN
[2022-10-01] MEDS: LORazepam 1 MG tablet PO PRN ×3 (08:00→22:00)
[2022-10-01 11:41] LABS: ALANINE AMINOTRANSFERASE 38 U/L (12-78); ALBUMIN 3.3 G/DL (3.4-5.0); ALBUMIN/GLOBULIN RATIO 1.1 (1.1-1.5); ALKALINE PHOSPHATASE 59 IU/L (46-116); ANION GAP 8 (8-16); ASPARTATE AMINO TRANSFERASE 28 U/L (10-37); BILIRUBIN,TOTAL 0.3 MG/DL (0.1-1.0); BLOOD UREA NITROGEN 9 MG/DL (7-18); BUN/CREATININE RATIO 5.5 (10.0-20.0); CALCIUM 8.9 MG/DL (8.5-10.1); CHLORIDE 105 MMOL/L (99-107); CREATININE 1.64 MG/DL (0.40-0.90); GLUCOSE 152 MG/DL (70-104); POTASSIUM 3.3 MMOL/L (3.5-5.1); SODIUM 138 MMOL/L (135-145); TOTAL CARBON DIOXIDE 24.7 MMOL/L (24-32); TOTAL PROTEIN 6.3 G/DL (6.4-8.2); eGFR 32 ML/MIN
[2022-10-01] MEDS: haloperidol 5mg tablet PO PRN (14:19)
[2022-10-01 17:18] LABS: HEMOGLOBIN A1C 5.8 % (4.5-6.2)
--- NOTE | 2022-10-01 18:20 | NUR ---
Patient in room PCU 3028. I have received report from OMAIRA MERINO and had the opportunity to ask questions and assume patient care.
--- NOTE | 2022-10-01 18:23 | NUR ---
Problems reprioritized. Patient report given, questions answered & plan of care reviewed with Dionne conn RN. Pt sleeping. call light in reach. evidence of adelaidao saldana wrappers in stephen prakash. Addendum: 10/01/22 at 1824 by Tricia Navarro RN Amended: Links added.
[2022-10-01] MEDS: sennosides/docusate sodium tablet PO SCH (20:15)
[2022-10-02 02:00] VITALS: BP 157/72; PULSE 78; RESP 16; TEMP 97.6; O2SAT 93
[2022-10-02] MEDS: haloperidol 5mg tablet PO PRN (02:05)
[2022-10-02] MEDS: normal saline 1000ml 1,000 ML IV SCH (05:16)
--- NOTE | 2022-10-02 06:15 | NUR ---
Problems reprioritized. Patient report given, questions answered & plan of care reviewed with OMAIRA MERINO.
--- NOTE | 2022-10-02 06:16 | NUR ---
Patient in room PCU 3028. I have received report from Yahaira CASTANO and had the opportunity to ask questions and assume patient care. Pt awake and alert. No distress, Call light in reach. Addendum: 10/02/22 at 0617 by Tricia Navarro RN Amended: Links added.
[2022-10-02 06:38] VITALS: RESP 16; O2SAT 95
[2022-10-02 06:48] LABS: BASOPHILS % (AUTO) 0.5 % (0-1); EOSINOPHILS # (AUTO) 0.2 X10'3 (0-0.9); EOSINOPHILS % (AUTO) 2.8 % (0-6); HEMATOCRIT 39.8 % (35.0-45.0); HEMOGLOBIN 13.5 g/dl (12.0-16.0); LYMPHOCYTES # (AUTO) 1.3 X10'3 (1.1-4.8); LYMPHOCYTES % (AUTO) 20.2 % (21-51); MEAN CORPUSCULAR HGB CONC 33.8 g/dL (33.0-36.5); MEAN CORPUSCULAR VOLUME 94.8 FL (78-98); MONOCYTES # (AUTO) 0.7 X10'3 (0-0.9); MONOCYTES % (AUTO) 10.9 % (2-12); NEUTROPHILS # (AUTO) 4.3 X10'3 (1.8-7.7); NEUTROPHILS % (AUTO) 65.6 % (42-75); PLATELET COUNT 349 X10'3 (140-440); RED CELL DISTRIBUTION WIDTH 14.7 % (11.5-14.5); WHITE BLOOD COUNT 6.6 X10'3 (4.5-11.0)
[2022-10-02 07:23] VITALS: BP 167/97; PULSE 78; RESP 19; TEMP 98.9; O2SAT 95
[2022-10-02] MEDS: pantoprazole 40mg Tablet.DR PO SCH (08:18)
[2022-10-02] MEDS: ESCITALOPRAM OXALATE 5 MG TABLET PO SCH (08:18)
[2022-10-02] MEDS: lisinopril 10 MG tablet PO SCH (08:19)
[2022-10-02] MEDS: metoprolol succinate 25mg (24-HOUR) SR. Tablet PO SCH (08:19)
[2022-10-02] MEDS: thiamine 100mg/ml 2ml inj. IV SCH (08:20)
[2022-10-02] MEDS: nicotine 14mg patch - 24hr TD SCH (08:20)
[2022-10-02] MEDS: folic acid 1mg/0.2ml inj IV SCH (08:20)
[2022-10-02] MEDS: heparin, porcine 5000 units/ml vial SQ SCH (08:21)
[2022-10-02] MEDS: LORazepam 1 MG tablet PO PRN (08:23)
[2022-10-02 11:00] VITALS: BP 187/87; PULSE 56; RESP 20; TEMP 98.3; O2SAT 20
[2022-10-02 11:30] VITALS: BP 152/67; PULSE 62
[2022-10-02] MEDS ORDERED: PANT40TA54 PO (12:22)
--- NOTE | 2022-10-02 13:30 | NUR ---
All written and verbal orders for D/C given. All questions answered. info on stopping smoking and drinking given. Pt stated she had all belongings. Home with . Addendum: 10/02/22 at 1349 by Tricia Navarro RN Amended: Links added.
== END 2022-10-02 13:30 | disposition home health service (06) | DRG 918 ==
LOC: ER 06:57 → UNDOADMIN 10:05 → ED HOLD 10:05 → PCU 3S 12:00
PROVIDERS: ADMIT Internal Medicine; ATTEND Internal Medicine
DX: T51.2X1A Toxic effect of 2-Propanol, accidental (unintentional), initial encounter (principal); E87.3 Alkalosis; N17.9 Acute kidney failure, unspecified; E46 Unspecified protein-calorie malnutrition; N39.0 Urinary tract infection, site not specified; B96.20 Unspecified Escherichia coli [E. coli] as the cause of diseases classified elsewhere; F10.20 Alcohol dependence, uncomplicated; N18.9 Chronic kidney disease, unspecified; I12.9 Hypertensive chronic kidney disease with stage 1 through stage 4 chronic kidney disease, or unspecified chronic kidney disease; F17.200 Nicotine dependence, unspecified, uncomplicated; Z79.899 Other long term (current) drug therapy; Z71.41 Alcohol abuse counseling and surveillance of alcoholic; Z68.28 Body mass index [BMI] 28.0-28.9, adult; Y92.89 Other specified places as the place of occurrence of the external cause; Z71.6 Tobacco abuse counseling
CPT/HCPCS: 36415; 36600; 74176; 80053; 80320; 80329; 81001; 82009; 82803; 82948; 83036; 83605; 83690; 83930; 84484; 85018; 85025; 87040; 87077; 87081; 87088; 87186; 93005; 97116; 97161; 97530; 97535; 99285; G0378; J1644; J2060; J2405; J3411; J3490; J7030

== ENCOUNTER 2022-11-01 19:47 | Emergency (ER) | payer BC ==
[~2022-11-01 19:47] MED LIST changes: -ATI1T PO; -CHOL10002 PO; -FLUT16SP2 BOTHNARES; -HYDR-3686 PO; -LIDO1ADH TOP; -LIPA1CAP18 PO; -METH-797 PO; -MULT-1085 PO; -NICO-687 TOP; -ONDA4TAB12 PO; -THIA50TA10 PO
[2022-11-02] MEDS ORDERED: OXYC-138 PO (11:28)
== END 2022-11-01 21:34 | disposition left against medical advice (07) ==
LOC: ER 19:48
DX: M25.539 Pain in unspecified wrist (principal); Z53.21 Procedure and treatment not carried out due to patient leaving prior to being seen by health care provider

== ENCOUNTER 2022-11-02 07:56 | Emergency (ER) | payer BC ==
[~2022-11-02] VITALS: Ht 162.6 cm; Wt 76.4 kg
[2022-11-02 07:59] VITALS: BP 159/85; PULSE 57; TEMP 98; O2SAT 99
[2022-11-02] MEDS ORDERED: HYDROcodone/acetaminophen 10/325mg tab PO ONE (10:20)
[2022-11-02] MEDS ORDERED: ibuprofen 200mg tablet PO ONE (10:20)
[2022-11-02 10:43] VITALS: RESP 18
[2022-11-02] MEDS ORDERED: LIDOcaine 1% W/epiNEPHrine 1:100,000 20ml vial IJ ONE (10:48)
[2022-11-02] MEDS ORDERED: OXYC-138 PO (11:28)
== END 2022-11-02 12:55 | disposition home or self-care (01) ==
LOC: ER 07:57
DX: S52.501A Unspecified fracture of the lower end of right radius, initial encounter for closed fracture (principal); Z79.899 Other long term (current) drug therapy; W19.XXXA Unspecified fall, initial encounter; Y93.89 Activity, other specified; Y92.89 Other specified places as the place of occurrence of the external cause; Y99.8 Other external cause status
CPT/HCPCS: 25605; 73100; 73110; 99284

== ENCOUNTER 2023-09-19 10:24 | Inpatient (IN) | payer BC ==
[~2023-09-19] VITALS: Ht 165.1 cm; Wt 87.5 kg
[~2023-09-19 10:24] MED LIST changes: +OXYC-138 PO
[2023-09-19] MEDS ORDERED: pantoprazole 40mg IV 80 MG in normal saline 100ml IV soln 100 ML IV ONE (10:55)
[2023-09-19] MEDS: normal saline 1000ML IV soln IVB ONE (11:13)
[2023-09-19 11:23] LABS: BASOPHILS # (AUTO) 0.1 X10'3 (0-0.2); BASOPHILS % (AUTO) 0.5 % (0-1); EOSINOPHILS % (AUTO) 0 % (0-6); HEMATOCRIT 43.6 % (35.0-45.0); HEMOGLOBIN 14.4 g/dl (12.0-16.0); LYMPHOCYTES # (AUTO) 1.2 X10'3 (1.1-4.8); MEAN CORPUSCULAR HEMOGLOBIN 30.3 PG (27.0-31.0); MEAN CORPUSCULAR HGB CONC 33.1 g/dL (33.0-36.5); MEAN CORPUSCULAR VOLUME 91.5 FL (78-98); MONOCYTES # (AUTO) 0.7 X10'3 (0-0.9); MONOCYTES % (AUTO) 5.9 % (2-12); NEUTROPHILS # (AUTO) 9.9 X10'3 (1.8-7.7); NEUTROPHILS % (AUTO) 83.6 % (42-75); PLATELET COUNT 430 X10'3 (140-440); RED BLOOD COUNT 4.76 X10'6 (4.20-5.60); RED CELL DISTRIBUTION WIDTH 15.6 % (11.5-14.5); WHITE BLOOD COUNT 11.9 X10'3 (4.5-11.0)
[2023-09-19 11:36] LABS: PROTHROMBIN TIME 10.2 SECONDS (9.0-12.0)
[2023-09-19 11:40] LABS: ALANINE AMINOTRANSFERASE 34 U/L (12-78); ALBUMIN/GLOBULIN RATIO 1.2 (1.1-1.5); ALKALINE PHOSPHATASE 107 IU/L (46-116); ASPARTATE AMINO TRANSFERASE 21 U/L (10-37); BILIRUBIN,TOTAL 0.6 MG/DL (0.1-1.0); CALCIUM 8.9 MG/DL (8.5-10.1); TOTAL CARBON DIOXIDE 26.9 MMOL/L (24-32); TOTAL PROTEIN 7.3 G/DL (6.4-8.2)
[2023-09-19 11:44] LABS: ETHANOL < 10 MG/DL (<10); LIPASE 57 U/L (16-77)
[2023-09-19] MEDS: pantoprazole 40 MG vial IV ONE ×2 (12:00)
[2023-09-19 12:08] LABS: ANION GAP 11 (8-16); BLOOD UREA NITROGEN 23 MG/DL (7-18); BUN/CREATININE RATIO 7.6 (10.0-20.0); CHLORIDE 99 MMOL/L (99-107); CREATININE 3.04 MG/DL (0.40-0.90); GLUCOSE 162 MG/DL (70-104); POTASSIUM 3.5 MMOL/L (3.5-5.1); SODIUM 137 MMOL/L (135-145); eCRCL 17 ML/MIN; eGFR 16 ML/MIN
[2023-09-19 12:33] LABS: ACETONE LARGE (NEGATIVE)
[2023-09-19 12:35] LABS: OSMOLALITY 339 MOSM/K (280-300)
[2023-09-19] MEDS ORDERED: folic acid 1mg/0.2ml inj IV SCH (12:45)
[2023-09-19] MEDS ORDERED: thiamine 100mg/ml 2ml inj. IV SCH (13:00)
[2023-09-19 13:14] LABS: BILIRUBIN,URINE NEGATIVE (Neg); CLARITY,URINE CLEAR (Clear); COLOR,URINE YELLOW (Yellow); GLUCOSE, URINE NEGATIVE (Neg); KETONES,URINE TRACE mg/dl (Neg); LEUKOCYTE ESTERASE ,URINE NEGATIVE (Neg); NITRITES, URINE NEGATIVE (Neg); OCCULT BLOOD,URINE TRACE-INTACT (Neg); PROTEIN,URINE 100 mg/dl (Neg); UROBILINOGEN,URINE 0.2 E.U/dL (0.2-1.0)
[2023-09-19 13:18] LABS: UA COLLECTION TYPE STRAIGHT CATH
[2023-09-19 13:19] LABS: BACTERIA,URINE NONE SEEN /HPF (Neg); MUCUS STRANDS FEW /LPF (Neg); SQUAMOUS EPITHELIAL CELL,UR FEW /LPF (FEW); WBC,URINE 0-4 /HPF (0-4)
[2023-09-19] MEDS ORDERED: magnesium Cl slow-release 64mg tablet PO PRN (13:20)
[2023-09-19] MEDS ORDERED: haloperidol lactate 5mg/ml inj IM PRN (13:20)
[2023-09-19] MEDS ORDERED: potassium Cl 20 mEq SR tablet PO PRN ×2 (13:20)
[2023-09-19] MEDS ORDERED: dicyclomine 10 MG capsule PO PRN (13:20)
[2023-09-19] MEDS ORDERED: magnesium sulf-water 4G/100mL 100 ML IV PRN (13:20)
[2023-09-19] MEDS ORDERED: potassium Cl 40MEQ/1/2NS 520ml 520 ML IV PRN (13:20)
[2023-09-19] MEDS ORDERED: mag hydrox/Alum hydrox/simeth 30ml oral suspension PO PRN (13:20)
[2023-09-19] MEDS ORDERED: ondansetron 4mg rapidly disintigrating tab PO PRN (13:20)
[2023-09-19] MEDS ORDERED: acetaminophen 325mg tablet PO PRN (13:20)
[2023-09-19] MEDS ORDERED: loperamide 2mg capsule PO PRN (13:20)
[2023-09-19 13:30] LABS: URINE AMPHETAMINE SCREEN POSITIVE (Neg); URINE BARBITUATE SCREEN NEGATIVE (Neg); URINE BENZODIAZEPINES SCREEN NEGATIVE (Neg); URINE CANNABINOID SCREEN NEGATIVE (Neg); URINE COCAINE SCREEN NEGATIVE (Neg); URINE METHADONE SCREEN NEGATIVE (Neg); URINE OPIATE SCREEN NEGATIVE (Neg); URINE PHENCYCLIDINE SCREEN NEGATIVE (Neg)
[2023-09-19] MEDS ORDERED: hydrALAZINE 20mg/ml inj. IV PRN (13:35)
[2023-09-19 14:31] LABS: PRO BRAIN NATRIURETIC PEPTIDE 114 PG/ML (0-125)
[2023-09-19] MEDS: normal saline 1000ml 1,000 ML IV SCH (15:32)
[2023-09-19] MEDS: ondansetron/PF 4mg/2ml inj IV PRN (19:37)
[2023-09-19] MEDS: LORazepam 2 mg/ml vial IV PRN (20:40)
[2023-09-19] MEDS: thiamine 100mg/ml 2ml inj. IV SCH (21:39)
[2023-09-19 22:00] VITALS: BP 146/77; PULSE 110; RESP 19; TEMP 97.9; O2SAT 94
[2023-09-19 23:24] VITALS: RESP 16; O2SAT 94
[2023-09-20 05:42] LABS: RED CELL DISTRIBUTION WIDTH 15.9 % (11.5-14.5)
[2023-09-20 05:45] LABS: BASOPHILS % (AUTO) 0.4 % (0-1); EOSINOPHILS % (AUTO) 0.1 % (0-6); HEMATOCRIT 40.8 % (35.0-45.0); HEMOGLOBIN 13.7 g/dl (12.0-16.0); LYMPHOCYTES # (AUTO) 2.3 X10'3 (1.1-4.8); LYMPHOCYTES % (AUTO) 21.2 % (21-51); MEAN CORPUSCULAR HEMOGLOBIN 30.9 PG (27.0-31.0); MEAN CORPUSCULAR HGB CONC 33.5 g/dL (33.0-36.5); MEAN CORPUSCULAR VOLUME 92.3 FL (78-98); MEAN PLATELET VOLUME 7.5 FL (7.4-10.4); MONOCYTES % (AUTO) 9.4 % (2-12); NEUTROPHILS # (AUTO) 7.6 X10'3 (1.8-7.7); NEUTROPHILS % (AUTO) 68.9 % (42-75); PLATELET COUNT 373 X10'3 (140-440); RED BLOOD COUNT 4.42 X10'6 (4.20-5.60)
[2023-09-20 05:58] LABS: ALANINE AMINOTRANSFERASE 30 U/L (12-78); ALBUMIN 3.6 G/DL (3.4-5.0); ALBUMIN/GLOBULIN RATIO 1.2 (1.1-1.5); ALKALINE PHOSPHATASE 91 IU/L (46-116); AMYLASE 33 U/L (25-115); ANION GAP 9 (8-16); ASPARTATE AMINO TRANSFERASE 19 U/L (10-37); BILIRUBIN,TOTAL 0.6 MG/DL (0.1-1.0); BLOOD UREA NITROGEN 16 MG/DL (7-18); CALCIUM 8.6 MG/DL (8.5-10.1); CHLORIDE 103 MMOL/L (99-107); CREATININE 2.68 MG/DL (0.40-0.90); GLUCOSE 129 MG/DL (70-104); LIPASE 77 U/L (16-77); MAGNESIUM 2.2 MG/DL (1.5-2.4); PHOSPHORUS 3.2 MG/DL (2.3-4.5); POTASSIUM 3.5 MMOL/L (3.5-5.1); SODIUM 139 MMOL/L (135-145); TOTAL CARBON DIOXIDE 27.3 MMOL/L (24-32); TOTAL PROTEIN 6.7 G/DL (6.4-8.2); eCRCL 20 ML/MIN; eGFR 18 ML/MIN
[2023-09-20 06:00] VITALS: BP 150/86; PULSE 118; RESP 20; TEMP 97.1; O2SAT 96
[2023-09-20] MEDS ORDERED: multivitamins, therapeutics tablet PO SCH (08:00)
[2023-09-20] MEDS: pantoprazole 40mg Tablet.DR PO SCH (08:44)
[2023-09-20] MEDS: nicotine 21mg patch - 24 hr TD SCH (08:44)
[2023-09-20] MEDS: metoprolol succinate 25mg (24-HOUR) SR. Tablet PO SCH (08:45)
[2023-09-20] MEDS: multivitamins, therapeutics tablet PO SCH (08:45)
[2023-09-20] MEDS: ESCITALOPRAM 10 mg tablet 10 MG TABLET PO SCH (08:45)
[2023-09-20] MEDS: folic acid 1mg/0.2ml inj IV SCH (08:45)
[2023-09-20] MEDS: lisinopril 10 MG tablet PO SCH (08:46)
[2023-09-20] MEDS ORDERED: chlordiazePOXIDE 25mg capsule PO PRN (09:55)
[2023-09-20] MEDS ORDERED: LORazepam 2 mg/ml vial IV PRN (09:55)
[2023-09-20 11:00] VITALS: BP 155/84; PULSE 98; RESP 24; TEMP 97.9; O2SAT 90
[2023-09-20 15:00] VITALS: BP 127/70; PULSE 70; RESP 23; TEMP 97.4; O2SAT 94
[2023-09-20 16:11] VITALS: PULSE 80; RESP 19; O2SAT 98
[2023-09-20 18:00] VITALS: BP 146/73; PULSE 66; RESP 26; TEMP 98.3; O2SAT 93
[2023-09-20] MEDS: LORazepam 1 MG tablet PO PRN (20:02)
[2023-09-20 22:00] VITALS: BP 143/77; PULSE 65; RESP 27; TEMP 98.7; O2SAT 90
[2023-09-20] MEDS: guaiFENesin ER 600mg tablet PO ONE (23:51)
[2023-09-21 02:00] VITALS: BP 136/73; PULSE 70; RESP 15; TEMP 98.6; O2SAT 90
[2023-09-21 07:00] VITALS: BP 149/87; PULSE 82; RESP 19; TEMP 97.6; O2SAT 93
[2023-09-21 07:43] LABS: BASOPHILS % (AUTO) 0.4 % (0-1); EOSINOPHILS % (AUTO) 0.6 % (0-6); HEMATOCRIT 39.2 % (35.0-45.0); HEMOGLOBIN 13.4 g/dl (12.0-16.0); LYMPHOCYTES # (AUTO) 1.7 X10'3 (1.1-4.8); LYMPHOCYTES % (AUTO) 23.8 % (21-51); MEAN CORPUSCULAR HEMOGLOBIN 32.1 PG (27.0-31.0); MEAN CORPUSCULAR HGB CONC 34.1 g/dL (33.0-36.5); MEAN CORPUSCULAR VOLUME 94.1 FL (78-98); MEAN PLATELET VOLUME 8.2 FL (7.4-10.4); MONOCYTES # (AUTO) 0.8 X10'3 (0-0.9); MONOCYTES % (AUTO) 10.8 % (2-12); NEUTROPHILS # (AUTO) 4.5 X10'3 (1.8-7.7); NEUTROPHILS % (AUTO) 64.4 % (42-75); PLATELET COUNT 281 X10'3 (140-440); RED BLOOD COUNT 4.17 X10'6 (4.20-5.60); RED CELL DISTRIBUTION WIDTH 15.4 % (11.5-14.5)
[2023-09-21 07:54] LABS: PROTHROMBIN TIME 10.1 SECONDS (9.0-12.0)
[2023-09-21 08:03] LABS: ALANINE AMINOTRANSFERASE 32 U/L (12-78); ALBUMIN/GLOBULIN RATIO 0.9 (1.1-1.5); ALKALINE PHOSPHATASE 78 IU/L (46-116); AMYLASE 26 U/L (25-115); ANION GAP 8 (8-16); ASPARTATE AMINO TRANSFERASE 22 U/L (10-37); BILIRUBIN,TOTAL 0.5 MG/DL (0.1-1.0); BLOOD UREA NITROGEN 17 MG/DL (7-18); BUN/CREATININE RATIO 8.5 (10.0-20.0); CALCIUM 8.2 MG/DL (8.5-10.1); CHLORIDE 105 MMOL/L (99-107); CREATININE 1.99 MG/DL (0.40-0.90); GLUCOSE 108 MG/DL (70-104); LIPASE 60 U/L (16-77); MAGNESIUM 1.8 MG/DL (1.5-2.4); PHOSPHORUS 2.5 MG/DL (2.3-4.5); POTASSIUM 3.5 MMOL/L (3.5-5.1); SODIUM 140 MMOL/L (135-145); TOTAL CARBON DIOXIDE 26.9 MMOL/L (24-32); TOTAL PROTEIN 6.5 G/DL (6.4-8.2); eCRCL 26 ML/MIN; eGFR 25 ML/MIN
[2023-09-21] MEDS: guaiFENesin ER 600mg tablet PO SCH (08:51)
[2023-09-21] MEDS: LORazepam 1 MG tablet PO PRN (09:29)
[2023-09-21 11:00] VITALS: BP 151/84; PULSE 63; RESP 17; TEMP 97.8; O2SAT 94
[2023-09-21] MEDS ORDERED: NICO-687 TD (12:07)
[2023-09-21] MEDS ORDERED: ACAM333T8 PO (12:08)
[2023-09-21] MEDS ORDERED: LORazepam 2 mg/ml vial IV PRN (13:20)
[2023-09-23] MEDS ORDERED: LORazepam 2 mg/ml vial IV PRN (13:20)
== END 2023-09-21 12:20 | disposition home or self-care (01) | DRG 683 ==
LOC: ER 10:25 → ED HOLD 13:31 → PCU 3S 20:56
PROVIDERS: ADMIT Family Medicine; ATTEND Family Medicine
DX: N17.0 Acute kidney failure with tubular necrosis (principal); F10.139 Alcohol abuse with withdrawal, unspecified; I10 Essential (primary) hypertension; F32.A Depression, unspecified; Y90.9 Presence of alcohol in blood, level not specified; Z88.8 Allergy status to other drugs, medicaments and biological substances; Z82.49 Family history of ischemic heart disease and other diseases of the circulatory system; Z83.3 Family history of diabetes mellitus; Z79.899 Other long term (current) drug therapy; Z72.0 Tobacco use
CPT/HCPCS: 36415; 71045; 74178; 80053; 80305; 80320; 81001; 82009; 82140; 82150; 83690; 83735; 83880; 83930; 84100; 84484; 85025; 85610; 87081; 93005; 94760; 96365; 96366; 99285; C1758; G0378; J2060; J2405; J2470; J3411; J3490; J7030